=== PATIENT | male | born 1995 | race American Indian/Alaskan Native ===

== ENCOUNTER 2021-02-08 13:31 | Emergency (ER) | payer SELFPAY ==
[2021-02-08 13:39] VITALS: BP 143/71
[2021-02-08] MEDS ORDERED: HYDROcodone/ACETAMINOPHEN 5-325 MG TAB PO ONE (14:30)
[2021-02-08] MEDS ORDERED: ONDANSETRON 4 MG ODT TAB PO ONE (14:30)
[2021-02-08] MEDS ORDERED: dexAMETHasone 4 MG/ML VIAL IM STA (14:30)
--- NOTE | 2021-02-08 14:37 | Emergency Department Report ---
ED General Adult HPI - General Chief complaint: Sore Throat Stated complaint: SORE Time Seen by Provider: 02/08/21 13:37 Source: patient Mode of arrival: Ambulatory Limitations: Other - History of Present Illness Initial comments: 25-year-old -[place] male patient presents with complaints of sore throat x2 days. He reports he has difficulty swallowing and rates his pain as a 9/10 in severity. He states lozenges and Tylenol are not helping. No difficulty opening or closing his jaw. He also denies any cough, fever/chills or sweats, headache, chest pain, or shortness of breath. No past medical history per patient. - Related Data Previous Rx's Medication Instructions Recorded Last Taken Type Amoxicillin/Potassium Clav 1 each PO BID 10 Days #20 tablet 02/08/21 Unknown Rx [Augmentin 875-125 Tablet] Ibuprofen [Motrin 800 MG tab] 800 mg PO Q8HR PRN #20 tablet 02/08/21 Unknown Rx predniSONE [Deltasone] 20 mg PO BID #4 tab 02/08/21 Unknown Rx Allergies Allergy/AdvReac Type Severity Reaction Status Date / Time No Known Allergies Allergy Verified 02/08/21 15:46 ED Review of Systems ROS: Stated complaint: SORE Other details as noted in HPI Constitutional: denies: chills, fever, malaise, weakness ENT: throat pain. denies: ear pain Respiratory: denies: cough, shortness of breath Gastrointestinal: denies: abdominal pain, nausea, vomiting Skin: denies: rash, lesions Neurological: denies: headache Hematological/Lymphatic: denies: swollen glands ED Past Medical Hx - Medications Home Medications: Home Medications Medication Instructions Recorded Confirmed Last Taken Type Amoxicillin/Potassium Clav 1 each PO BID 10 Days #20 tablet 02/08/21 Unknown Rx [Augmentin 875-125 Tablet] Ibuprofen [Motrin 800 MG tab] 800 mg PO Q8HR PRN #20 tablet 02/08/21 Unknown Rx predniSONE [Deltasone] 20 mg PO BID #4 tab 02/08/21 Unknown Rx ED Physical Exam - General Limitations: Other General appearance: alert, in no apparent distress - Head Head exam: Present: atraumatic, normocephalic - Eye Eye exam: Present: normal appearance. Absent: scleral icterus - Expanded ENT Exam Expanded Mouth exam: Absent: drooling, trismus, muffled voice Teeth exam: Absent: dental caries Throat exam: Positive: tonsillar erythema (Bilateral), tonsillomegaly (Bilateral), other (Uvula is midline). Negative: tonsillar exudate, R peritonsillar mass, L peritonsillar mass - Neck Neck exam: Present: full ROM, lymphadenopathy (Mild tender submandibular lymphadenopathy noted) - Respiratory Respiratory exam: Present: normal lung sounds bilaterally. Absent: respiratory distress - Cardiovascular Cardiovascular Exam: Present: regular rate - Neurological Exam Neurological exam: Present: alert, oriented X3 - Psychiatric Psychiatric exam: Present: normal affect, normal mood - Skin Skin exam: Present: warm, dry, intact, normal color. Absent: rash ED Course Vital Signs 02/08/21 02/08/21 13:35 13:37 Temperature 98.8 F 98.8 F Pulse Rate 70 Respiratory 20 Rate Blood Pressure 143/71 O2 Sat by Pulse 99 Oximetry ED Medical Decision Making - Medical Decision Making 25-year-old -[place] male patient presents with complaints of sore throat x2 days. He reports he has difficulty swallowing and rates his pain as a 9/10 in severity. He states lozenges and Tylenol are not helping. No difficulty opening or closing his jaw. He also denies any cough, fever/chills or sweats, headache, chest pain, or shortness of breath. No past medical history per patient. Rapid strep is positive. Pain improved with meds given here in ED. He is well- appearing, his vitals are within normal, he stable for discharge home. Strict return precautions were discussed in detail patient verbalized understanding. Critical care attestation.: If time is entered above; I have spent that time in minutes in the direct care of this critically ill patient, excluding procedure time. ED Disposition Clinical Impression: Strep pharyngitis Disposition: HOME / SELF CARE / HOMELESS Is pt being admited?: No Condition: Stable Instructions: Strep Throat, Adult, [id number] Prescriptions: Amoxicillin/Potassium Clav [Augmentin 875-125 Tablet] 1 each PO BID 10 Days #20 tablet predniSONE [Deltasone] 20 mg PO BID #4 tab Ibuprofen [Motrin 800 MG tab] 800 mg PO Q8HR PRN #20 tablet PRN Reason: pain Referrals: PRIMARY CARE, [Primary Care Provider] - 3-5 Days [facility] [Provider Group] - 3-5 Days Forms: Work/School Release Form(ED)
== END 2021-02-08 16:10 | disposition home or self-care (01) ==
LOC: ED 13:31
DX: J02.0 Streptococcal pharyngitis (principal)
CPT/HCPCS: 87430; 96372; 99283; J1100; J3490; Q0162

== ENCOUNTER 2021-11-07 14:12 | Emergency (ER) | payer SELFPAY ==
[2021-11-07] MEDS ORDERED: KETOROLAC 10 MG TAB PO ONE (15:54)
[2021-11-07] MEDS ORDERED: oxyCODONE /ACETAMINOPHEN 5-325MG TAB PO ONE (15:54)
[2021-11-07] MEDS ORDERED: AMOXICILLIN 500 MG CAP PO ONE (15:54)
[2021-11-07 15:56] VITALS: BP 126/63
--- NOTE | 2021-11-07 16:03 | Emergency Department Report ---
ED ENT HPI - General Chief complaint: Dental/Oral Stated complaint: MOUTH PAIN, HEADACHES,NECK AND EAR PAIN Time Seen by Provider: 11/07/21 15:53 Source: patient Mode of arrival: Ambulatory Limitations: No Limitations - History of Present Illness Initial comments: 26-year-old black male with no past medical history resents to the emergency department for evaluation of dental pain. He states that he has had worsening dental pain and swelling for the last few days. He denies fever. MD complaint: tooth pain -: Gradual, days(s) (4-5) Location: tooth # (17) Severity: severe Severity scale (0 -10): 10 Quality: aching Consistency: constant Associated Symptoms: denies: fever - Related Data Previous Rx's Medication Instructions Recorded Last Taken Type Amoxicillin/Potassium Clav 1 each PO BID 10 Days #20 tablet 02/08/21 Unknown Rx [Augmentin 875-125 Tablet] Ibuprofen [Motrin 800 MG tab] 800 mg PO Q8HR PRN #20 tablet 02/08/21 Unknown Rx predniSONE [Deltasone] 20 mg PO BID #4 tab 02/08/21 Unknown Rx Acetaminophen/Codeine [Tylenol 1 tab PO Q6H PRN #12 tab 11/07/21 Unknown Rx /Codeine # 3 tab] Amoxicillin [Amoxicillin TAB] 875 mg PO BID #10 tab 11/07/21 Unknown Rx Ketorolac [Toradol] 10 mg PO Q6H PRN #12 tab 11/07/21 Unknown Rx Allergies Allergy/AdvReac Type Severity Reaction Status Date / Time No Known Allergies Allergy Verified 11/07/21 15:56 ED Dental HPI - General Chief complaint: Dental/Oral Stated complaint: MOUTH PAIN, HEADACHES,NECK AND EAR PAIN Time Seen by Provider: 11/07/21 15:53 Source: patient Mode of arrival: Ambulatory Limitations: No Limitations - Related Data Previous Rx's Medication Instructions Recorded Last Taken Type Amoxicillin/Potassium Clav 1 each PO BID 10 Days #20 tablet 02/08/21 Unknown Rx [Augmentin 875-125 Tablet] Ibuprofen [Motrin 800 MG tab] 800 mg PO Q8HR PRN #20 tablet 02/08/21 Unknown Rx predniSONE [Deltasone] 20 mg PO BID #4 tab 02/08/21 Unknown Rx Acetaminophen/Codeine [Tylenol 1 tab PO Q6H PRN #12 tab 11/07/21 Unknown Rx /Codeine # 3 tab] Amoxicillin [Amoxicillin TAB] 875 mg PO BID #10 tab 11/07/21 Unknown Rx Ketorolac [Toradol] 10 mg PO Q6H PRN #12 tab 11/07/21 Unknown Rx Allergies Allergy/AdvReac Type Severity Reaction Status Date / Time No Known Allergies Allergy Verified 11/07/21 15:56 ED Review of Systems ROS: Stated complaint: MOUTH PAIN, HEADACHES,NECK AND EAR PAIN Other details as noted in HPI Comment: All other systems reviewed and negative Constitutional: denies: chills, fever ENT: dental pain. denies: congestion Respiratory: denies: shortness of breath Cardiovascular: denies: chest pain, palpitations Gastrointestinal: denies: abdominal pain, nausea, vomiting Musculoskeletal: denies: back pain Neurological: denies: headache, weakness ED Past Medical Hx - Medications Home Medications: Home Medications Medication Instructions Recorded Confirmed Last Taken Type Amoxicillin/Potassium Clav 1 each PO BID 10 Days #20 tablet 02/08/21 Unknown Rx [Augmentin 875-125 Tablet] Ibuprofen [Motrin 800 MG tab] 800 mg PO Q8HR PRN #20 tablet 02/08/21 Unknown Rx predniSONE [Deltasone] 20 mg PO BID #4 tab 02/08/21 Unknown Rx Acetaminophen/Codeine [Tylenol 1 tab PO Q6H PRN #12 tab 11/07/21 Unknown Rx /Codeine # 3 tab] Amoxicillin [Amoxicillin TAB] 875 mg PO BID #10 tab 11/07/21 Unknown Rx Ketorolac [Toradol] 10 mg PO Q6H PRN #12 tab 11/07/21 Unknown Rx ED Physical Exam - General Limitations: No Limitations General appearance: alert, in no apparent distress - Head Head exam: Present: atraumatic, normocephalic - Eye Eye exam: Present: normal appearance. Absent: conjunctival injection - Expanded ENT Exam Expanded Teeth exam: Present: dental caries, fractured tooth # (17), dental tenderness # (17), other (Dental abscess noted to tooth #17) - Respiratory Respiratory exam: Absent: respiratory distress - Cardiovascular Cardiovascular Exam: Present: regular rate - GI/Abdominal GI/Abdominal exam: Absent: distended - Extremities Exam Extremities exam: Present: normal inspection - Back Exam Back exam: Present: normal inspection - Neurological Exam Neurological exam: Present: alert, oriented X3 - Psychiatric Psychiatric exam: Present: normal affect, normal mood - Skin Skin exam: Present: warm, dry, intact, normal color ED Course Vital Signs 11/07/21 15:54 Temperature 98.6 F Pulse Rate 70 Respiratory 18 Rate Blood Pressure 126/63 [Right] O2 Sat by Pulse 100 Oximetry ED Medical Decision Making - Medical Decision Making 26-year-old black male with no past medical history resents to the emergency department for evaluation of dental pain. He states that he has had worsening dental pain and swelling for the last few days. He denies fever. Exam consistent with dental abscess to tooth #17. Patient be discharged home with 7-day course of amoxicillin along with Toradol and Tylenol 3 to use as directed. He is advised to follow-up with dentist for further evaluation and management and return to the emergency department as needed. He verbalizes und erstanding of and agreement with plan of care. Critical care attestation.: If time is entered above; I have spent that time in minutes in the direct care of this critically ill patient, excluding procedure time. ED Disposition Clinical Impression: Dental abscess Disposition: HOME / SELF CARE / HOMELESS Is pt being admited?: No Does the pt Need Aspirin: No Condition: Stable Instructions: Dental Abscess, [id number] Additional Instructions: Take medications as prescribed. Follow-up with dentist for further evaluation and management. Return to the emergency department as needed. Prescriptions: Amoxicillin [Amoxicillin TAB] 875 mg PO BID #10 tab Ketorolac [Toradol] 10 mg PO Q6H PRN #12 tab PRN Reason: Pain Acetaminophen/Codeine [Tylenol /Codeine # 3 tab] 1 tab PO Q6H PRN #12 tab PRN Reason: Pain , Severe (7-10) Referrals: [facility] [Outside] - 3-5 Days [facility] [Outside] - 3-5 Days Forms: Work/School Release Form(ED) Time of Disposition: 16:03
== END 2021-11-07 18:30 | disposition home or self-care (01) ==
LOC: ED 14:12
DX: K04.7 Periapical abscess without sinus (principal)
CPT/HCPCS: 99282